=== PATIENT | female | born 1940 ===

== ENCOUNTER 2018-11-29 15:39 | Observation (INO) | payer MEDICAID, OTHER ==
[2018-11-29 15:39] VITALS: BMI 26.9
[2018-11-29] MEDS ORDERED: Sodium Chloride 0.9% 1,000 ML IV STA ×2 (16:23→18:48)
[2018-11-29 17:19] LABS: BASO % 0.1 % (0.0-2.0); EOS % 0.3 % (0.0-4.0); HEMOGLOBIN 15.7 g/dL (12.0-16.0); LYMPH # 0.6 K/uL (1.0-4.3); MEAN CELL VOLUME 86.8 fl (81.0-99.0); MEAN CORPUSCULAR HEMOGLOBIN 29.2 pg (27.0-31.0); MEAN CORPUSCULAR HGB CONC 33.7 g/dL (33.0-37.0); MONO # 0.3 K/uL (0.0-0.8); MONO % 2.6 % (0.0-10.0); NEUT # 10.3 K/uL (1.8-7.0); NRBC % 0.1 % (0.0-0.0); PLATELET COUNT 277 K/uL (130-400); RBC 5.38 Mil/uL (3.80-5.20); RED CELL DISTRIBUTION WIDTH 13.1 % (11.5-14.5); WHITE BLOOD COUNT 11.2 K/uL (4.8-10.8)
[2018-11-29 17:38] LABS: ALB/GLOB RATIO 1.3 (1.0-2.1); ALBUMIN 5.3 g/dL (3.5-5.0); ALT/SGPT 38 U/L (9-52); AST/SGOT 48 U/L (14-36); BLOOD UREA NITROGEN 21 mg/dl (7-17); CALCIUM 10.5 mg/dL (8.4-10.2); GFR NON-AFRICAN AMERICAN > 60
--- NOTE | 2018-11-29 18:27 | ED PDOC ---
HPI: Abdomen Time Seen by Provider: 11/29/18 16:17 Chief Complaint (Nursing): Abdominal Pain Chief Complaint (Provider): Abdominal Pain History Per: Patient History/Exam Limitations: no limitations Onset/Duration Of Symptoms: Hrs (x18) Current Symptoms Are (Timing): Still Present Additional Complaint(s): 78 year old female with pmHx of diabetes, present to ED for an evaluation of diffuse abdominal pain, nausea, vomiting, and mild diarrhea for the last 18 hours. No reports of recent sick contacts, fever, chills, or change in diet. PCP: Dr. Prem Fisher Past Medical History Reviewed: Historical Data, Nursing Documentation, Vital Signs Vital Signs: Last Vital Signs Temp 97 F L 11/29/18 15:45 Pulse 16 L 11/29/18 15:45 Resp 16 11/29/18 15:45 BP 72/45 L 11/29/18 15:45 Pulse Ox 98 11/29/18 15:45 - Medical History PMH: Diabetes, Gastritis, HTN, Hypercholesterolemia, Osteoporosis - Surgical History Surgical History: Cholecystectomy - Family History Family History: States: Unknown Family Hx - Immunization History Hx Influenza Vaccination: Yes Hx Pneumococcal Vaccination: Yes - Home Medications Home Medications: Ambulatory Orders Medication Instructions Recorded RX: Losartan/Hydrochlorothiazide 1 each PO DAILY 11/29/18 [Losartan-Hctz 100-25 mg Tab] RX: Omeprazole 40 mg PO DAILY 11/29/18 RX: metFORMIN ER [glucoPHAGE XR] 1,000 mg PO BID 11/29/18 - Allergies Allergies/Adverse Reactions: Allergies Allergy/AdvReac Type Severity Reaction Status Date / Time No Known Allergies Allergy Verified 11/29/18 15:45 Review of Systems ROS Statement: Except As Marked, All Systems Reviewed And Found Negative Constitutional: Negative for: Fever, Chills Gastrointestinal: Positive for: Nausea, Vomiting, Abdominal Pain (diffuse), Diarrhea (mild) Physical Exam - Reviewed Nursing Documentation Reviewed: Yes Vital Signs Reviewed: Yes - Physical Exam Appears: Positive for: No Acute Distress (weak appearance) Head Exam: Positive for: ATRAUMATIC, NORMAL INSPECTION, NORMOCEPHALIC Skin: Positive for: Normal Color Eye Exam: Positive for: Normal appearance, EOMI, PERRL ENT: Positive for: Normal ENT Inspection. Negative for: Pharyngeal Erythema Neck: Positive for: Normal, Supple Cardiovascular/Chest: Positive for: Regular Rate, Rhythm, Chest Non Tender Respiratory: Positive for: Normal Breath Sounds. Negative for: Wheezing, Respiratory Distress Gastrointestinal/Abdominal: Positive for: Normal Exam, Soft. Negative for: Tenderness, Mass Back: Positive for: Normal Inspection. Negative for: L CVA Tenderness, R CVA Tenderness Extremity: Positive for: Normal ROM (upper/lower) Neurologic/Psych: Positive for: Alert, Oriented, Mood/Affect (tired). Negative for: Motor/Sensory Deficits - Laboratory Results Result Diagrams: 12/01/18 07:45 11/30/18 05:45 Lab Results: Total Bilirubin 0.5 mg/dl (0.2-1.3) 11/29/18 16:48 AST 48 U/L (14-36) H D 11/29/18 16:48 ALT 38 U/L (9-52) 11/29/18 16:48 Alkaline Phosphatase 134 U/L (38-126) H D 11/29/18 16:48 Total Protein 9.5 G/DL (6.3-8.2) H 11/29/18 16:48 Albumin 5.3 g/dL (3.5-5.0) H D 11/29/18 16:48 Globulin 4.2 gm/dL (2.2-3.9) H 11/29/18 16:48 Albumin/Globulin Ratio 1.3 (1.0-2.1) 11/29/18 16:48 - ECG O2 Sat by Pulse Oximetry: 98 (RA) Pulse Ox Interpretation: Normal Medical Decision Making Medical Decision Making: Time: 162 Initial Plan: work up for viral gastritis * Labs * CXR * IV fluids * Zofran 4mg IVP * UA Time: 1849 --Labs reviewed: (+) dehydration. Upon provider reevaluation, patient continues to feel nauseous and unable to tolerate PO. Patient will be admitted to telemetry unit as she remains tachycardiac. GREGORIA Metcalf under Dr. Barone. Discussed plans with patient and family. Scribe Attestation: Documented by Janine Baltazar, acting as a scribe for Beatris Willis MD. Provider Scribe Attestation: All medical record entries made by the Scribe were at my direction and personally dictated by me. I have reviewed the chart and agree that the record accurately reflects my personal performance of the history, physical exam, medical decision making, and the department course for this patient. I have also personally directed, reviewed, and agree with the discharge instructions and disposition. Disposition - Clinical Impression Clinical Impression: Abdominal pain, Diabetes mellitus, Dehydration - Disposition Disposition: Routine/Home Disposition Time: 18:50 Condition: IMPROVED
[2018-11-29 18:37] LABS: BANDS 7 % (0-2); LYMPHOCYTE 7 % (20-50); MONOCYTE 4 % (0-10); MYELOCYTE 1 % (0-0); NEUTROPHIL 81 % (42-75); PLATELET ESTIMATE NORMAL (NORMAL); TOTAL CELLS COUNTED 100
[2018-11-29] MEDS: Sodium Chloride 0.9% 1,000 ML IV SCH (22:23)
[2018-11-30 04:42] LABS: URINE BILIRUBIN NEGATIVE (NEGATIVE); URINE BLOOD NEGATIVE (NEGATIVE); URINE CLARITY SLIGHTY-CLOUDY (Clear); URINE COLOR YELLOW (YELLOW); URINE GLUCOSE (UA) NEG (NEGATIVE); URINE LEUKOCYTE ESTERASE NEG Leu/uL (Negative); URINE PROTEIN NEGATIVE (NEGATIVE); URINE UROBILINOGEN 0.2-1.0 mg/dL (0.2-1.0)
[2018-11-30 07:29] LABS: HEMOGLOBIN 11.2 g/dL (12.0-16.0); MEAN CORPUSCULAR HEMOGLOBIN 29.2 pg (27.0-31.0); MEAN CORPUSCULAR HGB CONC 33.6 g/dL (33.0-37.0); RBC 3.84 Mil/uL (3.80-5.20); RED CELL DISTRIBUTION WIDTH 13.1 % (11.5-14.5); WHITE BLOOD COUNT 7.2 K/uL (4.8-10.8)
[2018-11-30 07:50] LABS: ALB/GLOB RATIO 1.1 (1.0-2.1); ALBUMIN 3.1 g/dL (3.5-5.0); ALT/SGPT 43 U/L (9-52); AST/SGOT 27 U/L (14-36); BLOOD UREA NITROGEN 16 mg/dl (7-17); CALCIUM 7.5 mg/dL (8.4-10.2); GFR NON-AFRICAN AMERICAN > 60
[2018-11-30] MEDS: Pantoprazole 40 mg EC Tab PO SCH (08:54)
[2018-11-30] MEDS: Sodium Chloride 0.9% 1,000 ML IV SCH ×2 (08:56→17:23)
--- NOTE | 2018-11-30 08:56 | RAD ---
Date of service: 11/29/2018 HISTORY: cough COMPARISON: No prior. TECHNIQUE: Chest PA and lateral FINDINGS: LUNGS: No active pulmonary disease. PLEURA: No significant pleural effusion identified. No pneumothorax apparent. CARDIOVASCULAR: No aortic atherosclerotic calcification present. Normal cardiac size. No pulmonary vascular congestion. OSSEOUS STRUCTURES: No significant abnormalities. VISUALIZED UPPER ABDOMEN: Normal. OTHER FINDINGS: None. IMPRESSION: No active disease.
[2018-11-30] MEDS ORDERED: HCTZ/Losartan 12.5/50 Tab PO SCH (09:00)
[2018-11-30] MEDS ORDERED: Potassium Chloride 20 mEq ER Tab PO ONE (11:09)
[2018-12-01] MEDS: HCTZ/Losartan 12.5/50 Tab PO SCH ×2 (06:03→08:47)
[2018-12-01 07:49] VITALS: BP 149/82; PULSE 70; RESP 18; TEMP 98.4
[2018-12-01 08:20] LABS: BASO % 0.3 % (0.0-2.0); EOS # 0.1 K/uL (0.0-0.7); EOS % 2.4 % (0.0-4.0); HEMOGLOBIN 12.1 g/dL (12.0-16.0); LYMPH # 1.9 K/uL (1.0-4.3); LYMPH % 31.6 % (20.0-40.0); MEAN CELL VOLUME 86.3 fl (81.0-99.0); MEAN CORPUSCULAR HGB CONC 33.6 g/dL (33.0-37.0); MEAN PLATELET VOLUME 7.8 fl (7.2-11.7); MONO # 0.5 K/uL (0.0-0.8); NEUT # 3.4 K/uL (1.8-7.0); NEUT % 57.7 % (50.0-75.0); RBC 4.18 Mil/uL (3.80-5.20); RED CELL DISTRIBUTION WIDTH 13.1 % (11.5-14.5); WHITE BLOOD COUNT 5.9 K/uL (4.8-10.8)
--- NOTE | 2018-12-01 08:32 | CP.PCM.PN ---
Subjective - Date & Time of Evaluation Date of Evaluation: 12/01/18 Time of Evaluation: 08:30 - Subjective Subjective: pt doing well. no f/c, n/v/d. am cbc noted. cmp pending. jakub po. denies complaints. Objective - Vital Signs/Intake and Output Vital Signs (last 24 hours): Temp Pulse Resp BP Pulse Ox 98.4 F 70 18 149/82 97 12/01/18 07:49 12/01/18 07:49 12/01/18 07:49 12/01/18 07:49 12/01/18 07:49 - Medications Medications: Current Medications Famotidine (Pepcid) 20 mg IVP Q12 [facility] Last Admin: 11/30/18 21:01 Dose: 20 mg HCTZ/Losartan Potassium (Hyzaar 12.5 Mg-50 Mg) 2 tab PO DAILY [facility] Last Admin: 12/01/18 06:03 Dose: 2 tab Metformin HCl (Glucophage) 1,000 mg PO BID [facility] Last Admin: 11/30/18 17:19 Dose: 1,000 mg Ondansetron HCl (Zofran Inj) 4 mg IVP Q6 PRN PRN Reason: Nausea/Vomiting Pantoprazole Sodium (Protonix Ec Tab) 40 mg PO DAILY [facility] Last Admin: 11/30/18 08:54 Dose: 40 mg - Labs Labs: 12/01/18 07:45 11/30/18 05:45 - Constitutional Appears: Well, Non-toxic, No Acute Distress - Head Exam Head Exam: ATRAUMATIC, NORMAL INSPECTION, NORMOCEPHALIC - Eye Exam Eye Exam: EOMI, Normal appearance, PERRL Pupil Exam: NORMAL ACCOMODATION, PERRL - ENT Exam ENT Exam: Mucous Membranes Moist, Normal Exam - Neck Exam Neck Exam: Full ROM, Normal Inspection. absent: Lymphadenopathy - Respiratory Exam Respiratory Exam: Clear to Ausculation Bilateral, NORMAL BREATHING PATTERN - Cardiovascular Exam Cardiovascular Exam: REGULAR RHYTHM, RRR, +S1, +S2. absent: Murmur - GI/Abdominal Exam GI & Abdominal Exam: Soft, Normal Bowel Sounds. absent: Tenderness - Extremities Exam Extremities Exam: Full ROM, Normal Capillary Refill, Normal Inspection. absent: Joint Swelling, Pedal Edema - Back Exam Back Exam: NORMAL INSPECTION - Neurological Exam Neurological Exam: Alert, Awake, CN II-XII Intact, Normal Gait, Oriented x3 - Psychiatric Exam Psychiatric exam: Normal Affect, Normal Mood - Skin Skin Exam: Dry, Intact, Normal Color, Warm Assessment and Plan (1) AGE (acute gastroenteritis) Assessment & Plan: ivf po as jakub monitor labs Status: Acute (2) DVT (deep venous thrombosis) Assessment & Plan: scd nad a ehose ambulation Status: Acute (3) Diabetes mellitus Assessment & Plan: fsbg, home meds, diet Status: Acute
[2018-12-01 08:43] VITALS: O2SAT 98
[2018-12-01] MEDS: Pantoprazole 40 mg EC Tab PO SCH (08:47)
[2018-12-01 09:01] LABS: ALB/GLOB RATIO 1.2 (1.0-2.1); ALBUMIN 3.7 g/dL (3.5-5.0); ALT/SGPT 29 U/L (9-52); AST/SGOT 22 U/L (14-36); BLOOD UREA NITROGEN 4 mg/dl (7-17); CALCIUM 8.5 mg/dL (8.4-10.2); GFR NON-AFRICAN AMERICAN > 60
[2018-12-01] MEDS ORDERED: Potassium Chloride 20 mEq ER Tab PO ONE (09:38)
--- NOTE | 2018-12-01 17:29 | CP.PCM.DIS ---
Provider - Provider Date of Admission: 11/29/18 18:47 Attending physician: Deidra Barone MD Time Spent in preparation of Discharge (in minutes): 15 Diagnosis - Discharge Diagnosis (1) AGE (acute gastroenteritis) Status: Acute (2) DVT (deep venous thrombosis) Status: Acute (3) Diabetes mellitus Status: Acute Hospital Course - Lab Results Lab Results: Most Recent Lab Values WBC 5.9 K/uL (4.8-10.8) 12/01/18 07:45 RBC 4.18 Mil/uL (3.80-5.20) 12/01/18 07:45 Hgb 12.1 g/dL (12.0-16.0) 12/01/18 07:45 Hct 36.0 % (34.0-47.0) 12/01/18 07:45 MCV 86.3 fl (81.0-99.0) 12/01/18 07:45 MCH 29.0 pg (27.0-31.0) 12/01/18 07:45 MCHC 33.6 g/dL (33.0-37.0) 12/01/18 07:45 RDW 13.1 % (11.5-14.5) 12/01/18 07:45 Plt Count 252 K/uL (130-400) 12/01/18 07:45 MPV 7.8 fl (7.2-11.7) 12/01/18 07:45 Neut % (Auto) 57.7 % (50.0-75.0) 12/01/18 07:45 Lymph % (Auto) 31.6 % (20.0-40.0) 12/01/18 07:45 [place] % (Auto) 8.0 % (0.0-10.0) 12/01/18 07:45 Eos % (Auto) 2.4 % (0.0-4.0) 12/01/18 07:45 Baso % (Auto) 0.3 % (0.0-2.0) 12/01/18 07:45 Neut # (Auto) 3.4 K/uL (1.8-7.0) 12/01/18 07:45 Lymph # (Auto) 1.9 K/uL (1.0-4.3) 12/01/18 07:45 [place] # (Auto) 0.5 K/uL (0.0-0.8) 12/01/18 07:45 Eos # (Auto) 0.1 K/uL (0.0-0.7) 12/01/18 07:45 Baso # (Auto) 0.0 K/uL (0.0-0.2) 12/01/18 07:45 Neutrophils % (Manual) 81 % (42-75) H 11/29/18 16:48 Band Neutrophils % 7 % (0-2) H 11/29/18 16:48 Lymphocytes % (Manual) 7 % (20-50) L 11/29/18 16:48 Monocytes % (Manual) 4 % (0-10) 11/29/18 16:48 Myelocytes % 1 % (0-0) H 11/29/18 16:48 Platelet Estimate Normal (NORMAL) 11/29/18 16:48 RBC Morphology Normal (NORMAL) 11/29/18 16:48 Sodium 140 mmol/l (132-148) 12/01/18 07:45 Potassium 3.3 MMOL/L (3.6-5.0) L 12/01/18 07:45 Chloride 104 mmol/L (98-107) 12/01/18 07:45 Carbon Dioxide 25 mmol/L (22-30) 12/01/18 07:45 Anion Gap 14 (10-20) 12/01/18 07:45 BUN 4 mg/dl (7-17) L 12/01/18 07:45 Creatinine 0.5 mg/dl (0.7-1.2) L 12/01/18 07:45 Est GFR ( Amer) > 60 12/01/18 07:45 Est GFR (Non-Af Amer) > 60 12/01/18 07:45 POC Glucose (mg/dL) 156 mg/dL (65-110) H 12/01/18 11:01 Random Glucose 104 mg/dL (65-105) 12/01/18 07:45 Calcium 8.5 mg/dL (8.4-10.2) 12/01/18 07:45 Phosphorus 2.0 mg/dl (2.5-4.5) L 12/01/18 07:45 Magnesium 2.2 MG/DL (1.6-2.3) 12/01/18 07:45 Total Bilirubin 0.2 mg/dl (0.2-1.3) 12/01/18 07:45 AST 22 U/L (14-36) 12/01/18 07:45 ALT 29 U/L (9-52) 12/01/18 07:45 Alkaline Phosphatase 64 U/L (38-126) 12/01/18 07:45 Total Protein 6.9 G/DL (6.3-8.2) 12/01/18 07:45 Albumin 3.7 g/dL (3.5-5.0) 12/01/18 07:45 Globulin 3.2 gm/dL (2.2-3.9) 12/01/18 07:45 Albumin/Globulin Ratio 1.2 (1.0-2.1) 12/01/18 07:45 Urine Color Yellow (YELLOW) 11/30/18 04:30 Urine Clarity Slighty-cloudy (Clear) 11/30/18 04:30 Urine pH 6.0 (5.0-8.0) 11/30/18 04:30 Ur Specific [place] 1.012 (1.003-1.030) 11/30/18 04:30 Urine Protein Negative mg/dL (NEGATIVE) 11/30/18 04:30 Urine Glucose (UA) Neg mg/dL (NEGATIVE) 11/30/18 04:30 Urine Ketones Negative mg/dL (NEGATIVE) 11/30/18 04:30 Urine Blood Negative (NEGATIVE) 11/30/18 04:30 Urine Nitrate Negative (NEGATIVE) 11/30/18 04:30 Urine Bilirubin Negative (NEGATIVE) 11/30/18 04:30 Urine Urobilinogen 0.2-1.0 mg/dL (0.2-1.0) 11/30/18 04:30 Ur Leukocyte Esterase Neg Jagdish/uL (Negative) 11/30/18 04:30 Urine RBC (Auto) 1 /hpf (0-3) 11/30/18 04:30 Urine Microscopic WBC 1 /hpf (0-5) 11/30/18 04:30 - Hospital Course Hospital Course: jakub po ivf monitor bw kdur Discharge Exam - Head Exam Head Exam: ATRAUMATIC, NORMAL INSPECTION, NORMOCEPHALIC Discharge Plan - Follow Up Plan Condition: IMPROVED Disposition: HOME/ ROUTINE Instructions: Dehydration, Adult (DC), Viral Gastroenteritis, Adult (DC) Additional Instructions: follow up with in 1-2 days final dx-age, dehydration doing well, jakub po. no f/c,n/v/d f/u rmg, rted prn,meds per med rec Referrals: Prem Fisher MD [Family Provider] -
--- NOTE | 2018-12-01 18:44 | CP.PCM.HP ---
History of Present Illness - History of Present Illness History of Present Illness: pt admitted for age and dehyration. at present. no f/c, n/v/d. jakub liquids. all labs and imaging noted. Present on Admission - Present on Admission Any Indicators Present on Admission: Yes History of Uncontrolled Diabetes: Yes Review of Systems - Gastrointestinal Gastrointestinal: As Per HPI, Dyspepsia, Nausea, Vomiting Past Patient History - Past Medical History & Family History Past Medical History?: Yes - Past Social History Smoking Status: Never Smoked - CARDIAC Hx Hypercholesterolemia: Yes Hx Hypertension: Yes - NEUROLOGICAL Hx Neurological Disorder: Yes - HEENT Hx HEENT Problems: Yes - ENDOCRINE/METABOLIC Hx Endocrine Disorders: Yes - MUSCULOSKELETAL/RHEUMATOLOGICAL Hx Osteoporosis: Yes - GASTROINTESTINAL Hx Gastritis: Yes - PSYCHIATRIC Hx Substance Use: No - SURGICAL HISTORY Hx Cholecystectomy: Yes - ANESTHESIA Hx Anesthesia: Yes Hx Anesthesia Reactions: No Meds Allergies/Adverse Reactions: Allergies Allergy/AdvReac Type Severity Reaction Status Date / Time No Known Allergies Allergy Verified 11/29/18 15:45 Physical Exam - Constitutional Appears: Well, Non-toxic, No Acute Distress - Head Exam Head Exam: ATRAUMATIC, NORMAL INSPECTION, NORMOCEPHALIC - Eye Exam Eye Exam: EOMI, Normal appearance, PERRL Pupil Exam: NORMAL ACCOMODATION, PERRL - ENT Exam ENT Exam: Mucous Membranes Moist, Normal Exam - Neck Exam Neck exam: Positive for: Normal Inspection - Respiratory Exam Respiratory Exam: Clear to Auscultation Bilateral, NORMAL BREATHING PATTERN - Cardiovascular Exam Cardiovascular Exam: REGULAR RHYTHM, RRR, +S1, +S2 - GI/Abdominal Exam GI & Abdominal Exam: Normal Bowel Sounds, Soft. absent: Tenderness - Extremities Exam Extremities exam: Positive for: full ROM, normal capillary refill, normal inspection, pedal pulses present - Back Exam Back exam: FULL ROM, NORMAL INSPECTION - Neurological Exam Neurological exam: Alert, CN II-XII Intact, Normal Gait, Oriented x3, Reflexes Normal - Psychiatric Exam Psychiatric exam: Normal Affect, Normal Mood - Skin Skin Exam: Dry, Intact, Normal Color, Warm Results - Vital Signs Recent Vital Signs: Last Vital Signs Temp 98.4 F 12/01/18 07:49 Pulse 70 12/01/18 07:49 Resp 18 12/01/18 07:49 BP 149/82 12/01/18 07:49 Pulse Ox 98 12/01/18 08:43 - Labs Result Diagrams: 12/01/18 07:45 12/01/18 07:45 Labs: Laboratory Results - last 24 hr 11/30/18 12/01/18 12/01/18 22:34 05:22 07:45 WBC 5.9 RBC 4.18 Hgb 12.1 Hct 36.0 MCV 86.3 MCH 29.0 MCHC 33.6 RDW 13.1 Plt Count 252 MPV 7.8 Neut % (Auto) 57.7 Lymph % (Auto) 31.6 [place] % (Auto) 8.0 Eos % (Auto) 2.4 Baso % (Auto) 0.3 Neut # (Auto) 3.4 Lymph # (Auto) 1.9 [place] # (Auto) 0.5 Eos # (Auto) 0.1 Baso # (Auto) 0.0 Sodium Potassium Chloride Carbon Dioxide Anion Gap BUN Creatinine Est GFR ( Amer) Est GFR (Non-Af Amer) POC Glucose (mg/dL) 123 H 123 H Random Glucose Calcium Phosphorus Magnesium Total Bilirubin AST ALT Alkaline Phosphatase Total Protein Albumin Globulin Albumin/Globulin Ratio 12/01/18 12/01/18 07:45 11:01 WBC RBC Hgb Hct MCV MCH MCHC RDW Plt Count MPV Neut % (Auto) Lymph % (Auto) [place] % (Auto) Eos % (Auto) Baso % (Auto) Neut # (Auto) Lymph # (Auto) [place] # (Auto) Eos # (Auto) Baso # (Auto) Sodium 140 Potassium 3.3 L Chloride 104 Carbon Dioxide 25 Anion Gap 14 BUN 4 L Creatinine 0.5 L Est GFR ( Amer) > 60 Est GFR (Non-Af Amer) > 60 POC Glucose (mg/dL) 156 H Random Glucose 104 Calcium 8.5 Phosphorus 2.0 L Magnesium 2.2 Total Bilirubin 0.2 AST 22 ALT 29 Alkaline Phosphatase 64 Total Protein 6.9 Albumin 3.7 Globulin 3.2 Albumin/Globulin Ratio 1.2 Assessment & Plan (1) AGE (acute gastroenteritis) Assessment and Plan: zofran prn ivf po as jakub liquid and adv as jakub Status: Acute (2) DVT (deep venous thrombosis) Assessment and Plan: scd and ae hose ambulation Status: Acute (3) Diabetes mellitus Assessment and Plan: fsbg, home meds, diet Status: Acute Decision To Admit - Pt Status Changed To: Hospital Disposition Of: Inpatient - Admit Certification Admit to Inpatient:: After my assessment, the patient will require hospitalization for at least two midnights. This is because of the severity of symptoms shown, intensity of services needed, and/or the medical risk in this patient being treated as an outpatient. - . Bed Request Type: Telemetry Admitting Physician: Deidra Barone
== END 2018-12-01 11:30 | disposition home or self-care (01) ==
LOC: H.ER 15:39 → INTOOBSV 18:47 → H.ERHOLD 18:47 → H.TEL 20:05
PROVIDERS: ADMIT Family Medicine; ATTEND Family Medicine
DX: K52.9 Noninfective gastroenteritis and colitis, unspecified (principal); E11.9 Type 2 diabetes mellitus without complications; E86.0 Dehydration; E78.00 Pure hypercholesterolemia, unspecified; I10 Essential (primary) hypertension; M81.0 Age-related osteoporosis without current pathological fracture; K29.70 Gastritis, unspecified, without bleeding; Z79.84 Long term (current) use of oral hypoglycemic drugs
CPT/HCPCS: 36415; 71046; 80053; 81003; 82948; 83735; 84100; 85025; 85027; 96361; 96374; 96375; 96376; 99285; G0378; J2405; J7030